=== PATIENT | male | born 1955 | race Caucasian/White ===

== ENCOUNTER 2021-06-17 17:52 | Observation (INO) ==
[2021-06-17] MEDS ORDERED: KETOROLAC 30 MG/1 ML VIAL ONE (18:10)
[2021-06-17] MEDS ORDERED: HYDROmorphone 2 MG/1 ML VIAL ONE ×2 (18:10→18:17)
[2021-06-17] MEDS ORDERED: ONDANSETRON 4 MG/2 ML VIAL ONE (18:10)
[2021-06-17] MEDS ORDERED: HYDROmorphone 2 MG/1 ML VIAL IV STA ×2 (18:18→18:31)
[2021-06-17] MEDS ORDERED: ONDANSETRON 4 MG/2 ML VIAL IV ONE (18:18)
[2021-06-17 18:29] LABS: Basophils # 0.1 10*3/uL (0.0-0.2); Basophils % 0.3 % (0.0-0.8); Eosinophils # 0.1 10*3/uL (0.0-0.87); Eosinophils % 0.4 % (0.00-10.9); Hematocrit 43.8 VOL% (42.0-52.0); Hemoglobin 14.4 GM/DL (14.0-18.0); Immature Granulocytes % 0.6 %; Lymphocytes # 1.7 10*3/uL (1.4-4.0); Mean Corpuscular HGB Conc 32.9 GM/DL (32-36); Mean Corpuscular Volume 87.6 FL (87-102); Mean Platelet Volume 9.9 FL (9.6-12.0); Monocytes % 7.7 % (1.7-12.7); Platelet Count 345 T/CUMM (130-400); Red Cell Distribution Width 12.9 % (9.3-17.3); White Blood Count 17.1 T/CUMM (4-12)
[2021-06-17] MEDS ORDERED: KETOROLAC 30 MG/1 ML VIAL IV STA (18:32)
[2021-06-17] MEDS ORDERED: PROMETHAZINE 25 MG/1 ML VIAL ONE (18:53)
[2021-06-17] MEDS ORDERED: PROMETHAZINE 25 MG/1 ML VIAL IM STA (19:01)
[2021-06-17 19:41] LABS: Albumin 3.6 G/DL (3.4-5.0); Bilirubin,Total 0.7 MG/DL (0.20-1.00); Calcium 9.1 MG/DL (8.5-10.1); Osmolality,Calculated 264.8 MOS/KG (273-304); Total Protein 7.1 G/DL (6.4-8.2)
[2021-06-17] MEDS ORDERED: SODIUM CHLORIDE 0.9% 1,000 ML IV STA (20:18)
[2021-06-17] MEDS ORDERED: PROMETHAZINE 25 MG/1 ML VIAL IM PRN (20:19)
[2021-06-17] MEDS ORDERED: ONDANSETRON 4 MG/2 ML VIAL IV PRN (20:19)
[2021-06-17] MEDS ORDERED: ACETAMINOPHEN 325 MG TABLET PO PRN (20:19)
[2021-06-17] MEDS ORDERED: HYDROmorphone 2 MG/1 ML VIAL IV PRN (20:19)
[2021-06-17] MEDS ORDERED: TAMSULOSIN 0.4 MG CAPSULE PO PRN (20:21)
[2021-06-17] MEDS ORDERED: clonazePAM 0.5 MG TABLET PO SCH (21:00)
[2021-06-17 22:22] LABS: Bilirubin,Urine Negative (Negative); Blood, Urine Negative (Negative); Glucose,Urine (UA) Negative (Negative); Ketones,Urine Negative (Negative); Nitrite,Urine Negative (Negative); Protein,Urine Negative; RBC,Urine 2 /HPF (0-4); Sperm,Urine Occasional /HPF (Negative); Urine Appearance CLEAR (Clear); Urine Color Straw (Yellow); Urine Specific Gravity 1.006 (1.001-1.035); Urine Urobilinogen < 2.0 EU/DL (0.2-1.0)
[2021-06-17] MEDS: CARBIDOPA/LEVODOPA CR 25-100 MG TABLET PO SCH (22:25)
[2021-06-17] MEDS: LACTATED RINGERS 1,000 ML IV SCH (22:25)
[2021-06-18] MEDS: OXcarbazepine 300 MG TABLET PO SCH ×2 (00:08→10:16)
[2021-06-18] MEDS: LACTATED RINGERS 1,000 ML IV SCH ×4 (00:19→09:56)
[2021-06-18 05:12] LABS: Basophils % 0.2 % (0.0-0.8); Eosinophils # 0.1 10*3/uL (0.0-0.87); Hematocrit 39.5 VOL% (42.0-52.0); Hemoglobin 12.9 GM/DL (14.0-18.0); Immature Granulocytes % 0.6 %; Immature Granulocytes Absolute 0.07 #; Lymphocytes # 1.8 10*3/uL (1.4-4.0); Lymphocytes % 15.1 % (21.2-54.2); Mean Corpuscular HGB Conc 32.7 GM/DL (32-36); Mean Corpuscular Volume 89.2 FL (87-102); Mean Platelet Volume 10.1 FL (9.6-12.0); Monocytes % 9.5 % (1.7-12.7); Neutrophils % 73.6 % (38.7-73.9); Platelet Count 258 T/CUMM (130-400); Red Blood Count 4.43 MC/CUMM (3.8-5.5); Red Cell Distribution Width 12.9 % (9.3-17.3); White Blood Count 12.1 T/CUMM (4-12)
[2021-06-18 05:32] LABS: Calcium 8.3 MG/DL (8.5-10.1); Osmolality,Calculated 265.7 MOS/KG (273-304); Potassium 3.9 MMOL/L (3.5-5.1)
[2021-06-18 08:39] VITALS: BP 109/61
[2021-06-18] MEDS ORDERED: ASPIRIN EC 81 MG TABLET PO SCH (09:00)
[2021-06-18] MEDS ORDERED: PANTOPRAZOLE 40 MG TABLET PO SCH (09:00)
[2021-06-18] MEDS: CARBIDOPA/LEVODOPA CR 25-100 MG TABLET PO SCH (10:16)
== END 2021-06-18 12:52 | disposition home or self-care (01) ==
LOC: N.ED 17:52 → N.EDINP 17:52 → N.TELES 22:18
PROVIDERS: ADMIT Urology; ATTEND Urology